=== PATIENT | male | born 1965 | race Caucasian/White ===

== ENCOUNTER 2019-02-27 09:08 | Outpatient (REF) | payer SELFPAY ==
[2019-02-27 22:19] LABS: Anion Gap 8.4 mmol/L (3-11); BUN 23 mg/dL (7-18); CO2 27.6 mmol/L (21.0-32.0); CREATININE 0.93 mg/dL (0.70-1.30); Calcium 8.7 mg/dL (8.5-10.1); Chloride 108 mmol/L (98-107); Glucose 83 mg/dL (70-100); Potassium 4.4 mmol/L (3.5-5.1); Sodium 144 mmol/L (136-145)
== END 2019-02-27 09:28 ==
LOC: NCHCN 09:08
PROVIDERS: PCP Internal Medicine; Visit Provider Internal Medicine
DX: I10 Essential (primary) hypertension (principal)
CPT/HCPCS: 80048

== ENCOUNTER 2019-07-18 00:51 | Outpatient (CLI) | payer MEDICAID, SELFPAY ==
--- NOTE | 2019-07-18 11:35 | DI.MRI_ITS ---
EXAM: MR LUMBAR SPINE WO CLINICAL HISTORY: LOW BACK PAIN, M54.5, NOT IMPROVING WITH PT AND MEDICAL MANAGEMENT. TECHNIQUE: Multiplanar multisequence MRI was performed. COMPARISON: No exams were available for comparison FINDINGS: MR examination of the lumbosacral spine was performed according to the usual protocol. There is eliseo discal vertebral signal change at L4-5 particularly in the L4 inferior endplate. There is loss of di sc height at L3-4 also consistent with disc degeneration. There is a mild left convex lumbar scolios is No significant bony central canal spinal stenosis. No significant neural foraminal stenosis. No dis c herniation identified lumbar region. The conus medullaris appears intact IMPRESSION: Disc degeneration at L3-4 and L4-5. No disc herniation or other significant focal finding.
== END 2019-07-18 01:11 ==
PROVIDERS: PCP Internal Medicine; Visit Provider Internal Medicine
DX: M54.5 Low back pain (principal); M51.36 Other intervertebral disc degeneration, lumbar region
CPT/HCPCS: 72148

== ENCOUNTER 2021-01-01 16:29 | Outpatient (REF) | payer MEDICAID, SELFPAY ==
[2021-01-01 15:48] LABS: ALT 45 U/L (16-63); AST 26 U/L (15-37); Albumin 3.7 g/dL (3.4-5.0); Alkaline Phosphatase 101 U/L (46-116); Anion Gap 11.4 mmol/L (3-11); BUN 17 mg/dL (7-18); Bilirubin, Total 0.3 mg/dL (0.2-1.0); CO2 25.6 mmol/L (21.0-32.0); CREATININE 0.8 mg/dL (0.70-1.30); Calcium 8.8 mg/dL (8.5-10.1); Calculated LDL 111 mg/dL (<100); Chloride 106 mmol/L (98-107); Cholesterol 180 mg/dL (<200); Glucose 84 mg/dL (74-106); HDL Cholesterol 53 mg/dL (40-60); Potassium 4.3 mmol/L (3.5-5.1); Sodium 143 mmol/L (136-145); Total Protein 7.1 g/dL (6.4-8.2); Triglyceride 81 mg/dL (<150)
== END 2021-01-01 16:30 | disposition home or self-care (01) ==
LOC: NCHCN 16:29
PROVIDERS: PCP Internal Medicine; Visit Provider Internal Medicine
DX: I10 Essential (primary) hypertension (principal); F43.8 Other reactions to severe stress
CPT/HCPCS: 80053; 80061

== ENCOUNTER 2022-01-23 15:15 | Outpatient (REF) | payer MEDICAID, SELFPAY ==
[2022-01-23 16:44] LABS: ALT 30 U/L (16-63); AST 23 U/L (15-37); Albumin 3.9 g/dL (3.4-5.0); Alkaline Phosphatase 96 U/L (46-116); BUN 17 mg/dL (7-18); Bilirubin, Total 0.5 mg/dL (0.2-1.0); Calcium 8.7 mg/dL (8.5-10.1); Chloride 104 mmol/L (98-107); Glucose 82 mg/dL (74-106); Potassium 4.2 mmol/L (3.5-5.1); Sodium 143 mmol/L (136-145)
== END 2022-01-23 15:16 | disposition home or self-care (01) ==
LOC: NCHCN 15:15
PROVIDERS: PCP Internal Medicine; Visit Provider Internal Medicine
DX: I10 Essential (primary) hypertension (principal)
CPT/HCPCS: 80053

== ENCOUNTER 2023-12-22 17:53 | Outpatient (REF) | payer MEDICAID, SELFPAY ==
[2023-12-22 21:46] LABS: Calculated LDL 62 mg/dL (<100); Cholesterol 139 mg/dL (<200); HDL Cholesterol 55 mg/dL (40-60); Triglyceride 112 mg/dL (<150)
== END 2023-12-22 17:54 | disposition home or self-care (01) ==
LOC: NCHCN 17:53
PROVIDERS: PCP Internal Medicine; Visit Provider Internal Medicine
DX: Z00.00 Encounter for general adult medical examination without abnormal findings (principal)
CPT/HCPCS: 80061

== ENCOUNTER 2024-12-22 04:02 | Emergency (ER) | payer MEDICAID, SELFPAY ==
[2024-12-22 04:11] VITALS: BP 164/103; PULSE 86; RESP 20; TEMP 37.1; O2SAT 96
--- NOTE | 2024-12-22 04:18 | W.ED.GENAD ---
Discharge Plan Disposition Patient Disposition: Home Condition: Stable Discharge Details Clinical Impression: Cellulitis of left lower extremity, Tinea corporis Primary Care Provider: Toña Garcia ED Provider: Lary Gardner Home Meds and New Rx's Prescriptions: New cephalexin 500 mg capsule 500 mg PO QID 6 Days Qty: 24 0RF sulfamethoxazole-trimethoprim [Bactrim DS] 800-160 mg tablet 1 tab PO Q12H 6 Days Qty: 12 0RF clotrimazole 1 % cream 1 applic topical BID 28 Days Qty: 45 0RF No Action acetaminophen [Tylenol] 325 MG tablet 325 mg PO PRN naproxen sodium [Aleve] 220 MG tablet 220 mg PO PRN ibuprofen [Ibuprofen Jr Strength] 100 MG tablet,chewable 100 mg PO PRN famotidine 20 MG tablet 1 - 3 tab PO HS PRN PRN lisinopril 20 MG tablet 20 mg PO DAILY Discharge Instructions Instructions: Cellulitis (Skin Infection), Adult ED Additional Instructions: You were seen in the emergency department today for evaluation of leg rash and pain, concerning for an infection known as cellulitis. The plaques underneath may be due to skin conditions such as tinea corporis, psoriasis, etc. I have started you on 2 antibiotics, you should take all of them until they are gone, even if you start to feel better. Between the supply as gave you in the emergency department today and the medicines that I sent to the pharmacy you should have 1 week of each. I have sent you the cream for tinea corporis, which you should apply to the plaques twice a day for the next 4 weeks. It can take a very long time for these plaques to heal entirely, please do not give up on the medication. However, you will need to be reevaluated by your primary care provider in the next few days and they may make changes to the topical medications depending on what your skin looks like after the infection has healed. Please use therapeutic dosing of Tylenol (acetaminophen) & Advil (ibuprofen) in an alternating fashion as follows: Take 1000mg of Tylenol every 6 hours without missing doses- that is 4 times per day. Long Term in between the Tylenol doses, take 600mg of Advil also on a 6 hour schedule, that is also 4 times per day. With this strategy, you will be taking something for fever/pain as often as every 3 hours. The daily maximum dosing of Tylenol is 4000mg, and the daily maximum dosing of Advil is 2400mg. Please note that some common cold medications & prescription pain medications may contain acetaminophen and you need to read OTC drug labels and factor that in to maximum daily doses. Please follow-up with your primary care provider in the next few days to discuss this visit and any symptoms that change, worsen, or persist. Thank you for allowing us to be part of your care. HPI General Mode of arrival: ambulatory. Date/Time Provider Initiated Documentation: 12/22/24 04:11. Limitations to Documentation: no limitations. Information obtained by: patient and old records reviewed. HPI Narrative: This is a 59-year-old male patient with a history of hypertension presenting for evaluation of leg rash and pain. The patient reports that for the last 2 weeks he has noted a dry scaly rash, with some intermittent drainage, and surrounding redness and swelling. 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 He states that he has been trying to manage the rash at home using bandages and Tattoo goo, but they do not seem to have healed completely. He presented tonight because he noted worsening pain, redness, and swelling specifically around the lesions on the left lower extremity. He reports that he has no personal history of psoriasis, has never noted ringworm. States that he does not have a history of skin or soft tissue infection. No reported fevers or chills, nausea or vomiting, the patient is otherwise without systemic symptoms. No reported trauma to that area, no numbness, tingling, or weakness distal to the region. Related Data Home Medications ?Medication ?Instructions ?Recorded ?Confirmed acetaminophen 325 mg tablet 325 mg PO PRN 11/26/17 12/22/24 (Tylenol) ibuprofen 100 mg chewable tablet 100 mg PO PRN 11/26/17 12/22/24 (Ibuprofen Jr Strength) naproxen sodium 220 mg tablet 220 mg PO PRN 11/26/17 12/22/24 (Aleve) famotidine 20 mg tablet 1 - 3 tab PO HS PRN PRN 12/09/17 12/22/24 lisinopril 20 mg tablet 20 mg PO DAILY 12/14/17 12/22/24 cephalexin 500 mg capsule 500 mg PO QID 6 days #24 caps 12/22/24 clotrimazole 1 % topical cream 1 applic topical BID 4 weeks #45 12/22/24 grams sulfamethoxazole 800 1 tab PO Q12H 6 days #12 tabs 12/22/24 mg-trimethoprim 160 mg tablet (Bactrim DS) Previous Rx's ?Medication ?Instructions ?Recorded cephalexin 500 mg capsule 500 mg PO QID 6 days #24 caps 12/22/24 clotrimazole 1 % topical cream 1 applic topical BID 4 weeks #45 12/22/24 grams sulfamethoxazole 800 1 tab PO Q12H 6 days #12 tabs 12/22/24 mg-trimethoprim 160 mg tablet (Bactrim DS) Allergies Allergy/AdvReac Type Severity Reaction Status Date / Time No Known Allergies Allergy Verified 12/22/24 04:13 General Stated Complaint: Cellulitis JEFFREY: 3 Exam Narrative Exam Narrative: Gen: Awake and alert, in no apparent distress HEENT: Non-icteric sclera Neck: Supple Lungs: No apparent respiratory distress, normal respiratory effort. Lung sounds clear and equal bilaterally CV: Appears well perfused, heart with regular rate and rhythm, no murmurs auscultated Abdomen: Non-distended MSK: Moves 4 extremities without apparent limitation in ROM Skin: Visualized skin with several oval plaques, ranging in size from 2 cm to 8 cm, the left lower extremity specifically I note surrounding redness, mild induration and erythema, crusting appreciated of the plaques but no fluctuance or active purulent drainage. Neuro: Normal Gait, no obvious focal deficits or facial asymmetry. Speaks in full, clear sentences. Psych: Appropriate for situation. Course Vital Signs Vital signs: Vital Signs Temperature 37.1 C 12/22/24 04:11 Pulse 86 12/22/24 04:11 Respiratory Rate 20 12/22/24 04:11 Blood Pressure 164/103 H 12/22/24 04:11 Pulse Oximetry 96 12/22/24 04:11 Temperature 37.1 C 12/22/24 04:11 Pulse 86 12/22/24 04:11 Respiratory Rate 20 12/22/24 04:11 Blood Pressure 164/103 H 12/22/24 04:11 Pulse Oximetry 96 12/22/24 04:11 Pain Level 7 12/22/24 04:11 Medical Decision Making This is a 59-year-old male patient presenting for evaluation of a leg rash. My differential includes but is not limited to cellulitis, certainly considered superinfection of tinea corporis or psoriasis plaques. The patient has no systemic signs of illness to suggest bacteremia or sepsis, no neurovascular complaints making arterial occlusion less likely. The rash is bilateral, and my exam is less consistent with DVT, CHF, or other conditions that cause swelling of lower extremities. At this time, the patient is hemodynamically appropriate and afebrile, and I do not see an indication to proceed with advanced laboratory studies or imaging. However, I do feel it reasonable to start this patient on a course of antibiosis, and given his report of purulent drainage, we will cover for both MRSA and strep species. I provided the patient with his first day of Keflex and Bactrim, as well as a prescription for 1 week in total. I also provided him with a prescription for clotrimazole, to trial until he can be reevaluated by his primary care provider. I provided him with Tylenol and ibuprofen for initial management of pain. At this time, the patient has had a full medical evaluation and is safe for discharge to home. They are hemodynamically stable, ambulatory, and tolerating PO. They are understanding of the follow-up plan and return precautions. They left our facility without incident. Lary Gardner MD Quality:SDOH Health Related Social Needs: No Data to Display PFSH All Active Problems (Updated 12/22/24 @ 04:19 by Lary aGrdner MD) Tinea corporis (Acute) Cellulitis of left lower extremity (Acute) Medical History (Updated 12/22/24 @ 04:19 by Lary Gardner MD) Hypertension History of narcotic addiction History of cigar smoking Surgical History (Updated 12/14/17 @ 11:48 by Adrianne Holland RN) Colonoscopy - MAC (12/14/17) Social History Smoking/Tobacco Use Status: Former Tobacco Use Smoking risk assessment performed?: Yes Drug use: Occasionally Substance use type: marijuana
[2024-12-22] MEDS: Ibuprofen 600 MG TAB PO (04:27)
[2024-12-22] MEDS: Cephalexin 500 MG CAP, 4 CAPS/BTL PO (04:27)
[2024-12-22] MEDS: Acetaminophen 500 MG TAB 1000 MG PO (04:27)
[2024-12-22] MEDS: Sulfameth/Trimeth DS, 2 TABS/BTL 1 TAB PO (04:27)
== END 2024-12-22 04:32 | disposition home or self-care (01) ==
PROVIDERS: Emergency Provider Emergency Medicine; PCP Internal Medicine
DX: L03.116 Cellulitis of left lower limb (principal); B35.4 Tinea corporis; I10 Essential (primary) hypertension
CPT/HCPCS: 99283